=== PATIENT | male | born 1990 | race African-American/Black ===

== ENCOUNTER 2019-07-02 12:36 | Emergency (ER) | payer OTHER ==
[~2019-07-02] VITALS: Ht 180.3 cm; Wt 76.0 kg
[2019-07-02 14:06] VITALS: BP 130/64
[2019-07-02] MEDS ORDERED: ZYDS20 PO (14:08)
[2019-07-02] MEDS ORDERED: OLANZAPINE 10MG TABLET PO SCH (15:15)
== END 2019-07-02 15:39 | disposition home or self-care (01) ==
LOC: ER 12:36
DX: F20.9 Schizophrenia, unspecified (principal); J45.909 Unspecified asthma, uncomplicated
CPT/HCPCS: 99283